=== PATIENT | female | born 1965 | race Two or more races ===

== ENCOUNTER 2020-11-21 08:35 | Inpatient (IN) | payer MEDICAID, OTHER ==
[~2020-11-21] VITALS: Ht 162.6 cm; Wt 87.6 kg
[2020-11-21 09:08] LABS: Basophils # (auto) 0 10 ^3/uL (0-0.2); Basophils % (auto) 0.4 % (0.0-2.0); Eosinophils # (auto) 0 10 ^3/uL (0-0.8); Eosinophils % (auto) 0.4 % (0.0-7.0); Hematocrit 36.7 % (36.0-46.0); Hemoglobin 12.7 g/dL (12.2-16.2); Lymphocytes # (auto) 1.4 10 ^3/uL (0.4-5.4); Lymphocytes % (auto) 13.4 % (10.0-50.0); Mean Corpuscular Hemoglobin 30.4 pg (28.0-32.0); Mean Corpuscular Hgb Conc. 34.6 g/dL (32.0-36.0); Mean Corpuscular Volume 87.7 fL (80.0-100.0); Monocytes # (auto) 0.8 10 ^3/uL (0-1.3); Neutrophils # (auto) 8.2 10 ^3/uL (1.6-8.6); Neutrophils % (auto) 77.8 % (37.0-80.0); Nucleated Red Blood Cells % 0.1 %; Platelet Count (auto) 350 10^3/uL (140-450); Red Blood Cells 4.18 10^6/uL (4.0-5.20); Red Cell Distribution Width 13.6 % (11.8-14.3); White Blood Cell 10.5 10^3/uL (4.4-10.8)
[2020-11-21] MEDS ORDERED: MORPHINE SULFATE 4 MG/ML SYR/VIAL IV ONE (09:15)
[2020-11-21] MEDS ORDERED: ONDANSETRON HCL 4 MG/2 ML VIAL IV ONE (09:15)
[2020-11-21] MEDS ORDERED: SODIUM CHLORIDE 0.9% 1,000 ML IV ONE (09:15)
[2020-11-21 09:38] LABS: Albumin 3.1 g/dL (3.4-5.0); Calcium 8.9 mg/dL (8.5-10.1)
[2020-11-21 09:42] LABS: BUN/Creatinine Ratio 17.8; Bilirubin, Total 0.9 mg/dL (0.2-1.0)
[2020-11-21] MEDS ORDERED: PIPERACILLIN-TAZOB 3.375GM 100 ML IV ONE (11:15)
[2020-11-21] MEDS ORDERED: metroNIDAZOLE 500MG/100ML 100 ML IV ONE (11:15)
[2020-11-21] MEDS ORDERED: ONDANSETRON HCL 4 MG/2 ML VIAL IV PRN (11:45)
[2020-11-21] MEDS: D5W/SOD CHLO 0.9% 1,000 ML IV SCH ×2 (12:48→20:13)
[2020-11-21 14:17] LABS: Urine Bacteria NONE SEEN /hpf (None Seen); Urine Blood 1+ /uL (Negative); Urine Mucus FEW (None Seen); Urine WBC 3 /hpf (0 - 5)
[2020-11-21] MEDS: MORPHINE SULF INJ 2 MG/ML SYRINGE 1ML IV PRN (17:03)
[2020-11-21 19:55] VITALS: BP 105/66
[2020-11-21] MEDS ORDERED: INFLUENZA QUAD 2020-2021 0.5 ML SYRG IM ONE (21:00)
[2020-11-21] MEDS ORDERED: ACETAMINOPHEN 325 MG TAB PO PRN (21:15)
[2020-11-21] MEDS: metroNIDAZOLE 500MG/100ML 100 ML IV SCH (21:27)
[2020-11-21 22:00] VITALS: BP 105/66
[2020-11-22 05:00] VITALS: BP 104/65
[2020-11-22] MEDS: metroNIDAZOLE 500MG/100ML 100 ML IV SCH ×3 (05:13→21:19)
[2020-11-22 06:26] LABS: Basophils # (auto) 0 10 ^3/uL (0-0.2); Basophils % (auto) 0.2 % (0.0-2.0); Eosinophils # (auto) 0.1 10 ^3/uL (0-0.8); Eosinophils % (auto) 1.1 % (0.0-7.0); Hematocrit 33.1 % (36.0-46.0); Hemoglobin 11.7 g/dL (12.2-16.2); Lymphocytes # (auto) 1.2 10 ^3/uL (0.4-5.4); Lymphocytes % (auto) 11.3 % (10.0-50.0); Mean Corpuscular Hemoglobin 30.9 pg (28.0-32.0); Mean Corpuscular Hgb Conc. 35.2 g/dL (32.0-36.0); Mean Corpuscular Volume 87.7 fL (80.0-100.0); Monocytes % (auto) 9.5 % (0.0-12.0); Neutrophils # (auto) 8.2 10 ^3/uL (1.6-8.6); Neutrophils % (auto) 77.9 % (37.0-80.0); Platelet Count (auto) 311 10^3/uL (140-450); Red Blood Cells 3.78 10^6/uL (4.0-5.20); Red Cell Distribution Width 13.8 % (11.8-14.3); White Blood Cell 10.5 10^3/uL (4.4-10.8)
[2020-11-22 06:28] LABS: INR 0.98 (0.9-1.15); Partial Thromboplastin Time 30.8 sec (23.0-31.2)
[2020-11-22 06:33] LABS: Albumin 2.6 g/dL (3.4-5.0); Calcium 8.5 mg/dL (8.5-10.1); Potassium 3.8 mmol/L (3.5-5.1)
[2020-11-22 06:35] LABS: Bilirubin, Total 0.8 mg/dL (0.2-1.0); Total Protein 6.9 g/dL (6.4-8.2)
[2020-11-22] MEDS: D5W/SOD CHLO 0.9% 1,000 ML IV SCH ×2 (06:49→17:43)
[2020-11-22 08:15] VITALS: BP 107/64
[2020-11-22 09:00] VITALS: BP 107/64
[2020-11-22] MEDS: cefTRIAXone 1GM/50ML D5W 50 ML IV SCH (09:00)
[2020-11-22] MEDS ORDERED: ceFAZolin 1GM/50ML 50 ML IV ONE (10:39)
[2020-11-22] MEDS ORDERED: GLYCOPYRROLATE 0.2 MG/ML 1ML VIAL ONE (10:55)
[2020-11-22] MEDS ORDERED: NEOSTIGMINE 1 MG/ML INJ (10mg/10ML VIAL) ONE (10:55)
[2020-11-22] MEDS ORDERED: ePHEDrine SULFATE 50 MG/ML AMP ONE (10:55)
[2020-11-22] MEDS ORDERED: LIDOCAINE 2% (LOCAL ANESTH.) PF 5ml SDV ONE (10:55)
[2020-11-22] MEDS ORDERED: ONDANSETRON HCL 4 MG/2 ML VIAL ONE (10:55)
[2020-11-22] MEDS ORDERED: PROPOFOL 10 MG/ML 20 ML IV ONE (10:56)
[2020-11-22] MEDS ORDERED: DexAMETHasone SOD PHOS 10MG/1ML VIAL INJ ONE (10:56)
[2020-11-22] MEDS ORDERED: BUPIVACAINE 0.25% INJ 50ML VIAL ONE (12:29)
[2020-11-22] MEDS ORDERED: ROCURONIUM 10MG/ML 10ML VIAL IV ONE (12:31)
[2020-11-22] MEDS ORDERED: fentaNYL CITRATE 100 MCG/2 ML VL ONE (12:31)
[2020-11-22] MEDS ORDERED: MIDAZOLAM HCL 1MG/1ML-2 ML VIAL ONE (12:31)
[2020-11-22] MEDS ORDERED: METOCLOPRAMIDE HCL 5MG/ml INJ 2ml VIAL ONE (14:01)
[2020-11-22] MEDS: HYDROmorphone HCL 2 MG/ML VL ONE ×2 (14:05→14:15)
[2020-11-22] MEDS ORDERED: ePHEDrine SULFATE 50 MG/ML AMP IV PRN (14:15)
[2020-11-22] MEDS ORDERED: METOCLOPRAMIDE HCL 5MG/ml INJ 2ml VIAL IV PRN (14:15)
[2020-11-22] MEDS ORDERED: ONDANSETRON HCL 4 MG/2 ML VIAL IV PRN (14:15)
[2020-11-22] MEDS ORDERED: HYDROmorphone HCL 2 MG/ML VL IV PRN ×3 (14:15)
[2020-11-22] MEDS ORDERED: NALOXONE HCL 0.4 MG/ML VIAL IV PRN (14:15)
[2020-11-22 17:00] VITALS: BP 92/58
[2020-11-22] MEDS: MORPHINE SULF INJ 2 MG/ML SYRINGE 1ML IV PRN ×2 (18:19→22:26)
[2020-11-22 22:00] VITALS: BP 97/61
[2020-11-23] MEDS: MORPHINE SULF INJ 2 MG/ML SYRINGE 1ML IV PRN ×4 (02:43→22:53)
[2020-11-23] MEDS: D5W/SOD CHLO 0.9% 1,000 ML IV SCH ×3 (03:01→23:45)
[2020-11-23 05:15] VITALS: BP 96/46
[2020-11-23 06:31] LABS: Basophils # (auto) 0 10 ^3/uL (0-0.2); Basophils % (auto) 0.2 % (0.0-2.0); Eosinophils # (auto) 0 10 ^3/uL (0-0.8); Hematocrit 32.4 % (36.0-46.0); Hemoglobin 11.1 g/dL (12.2-16.2); Lymphocytes % (auto) 9.8 % (10.0-50.0); Mean Corpuscular Hemoglobin 30.1 pg (28.0-32.0); Mean Corpuscular Hgb Conc. 34.2 g/dL (32.0-36.0); Mean Corpuscular Volume 88.1 fL (80.0-100.0); Monocytes # (auto) 0.5 10 ^3/uL (0-1.3); Monocytes % (auto) 5.2 % (0.0-12.0); Neutrophils # (auto) 8.6 10 ^3/uL (1.6-8.6); Neutrophils % (auto) 84.8 % (37.0-80.0); Platelet Count (auto) 384 10^3/uL (140-450); Red Blood Cells 3.67 10^6/uL (4.0-5.20); Red Cell Distribution Width 13.9 % (11.8-14.3); White Blood Cell 10.1 10^3/uL (4.4-10.8)
[2020-11-23] MEDS: metroNIDAZOLE 500MG/100ML 100 ML IV SCH ×3 (06:40→22:45)
[2020-11-23 09:00] VITALS: BP 102/53
[2020-11-23] MEDS: cefTRIAXone 1GM/50ML D5W 50 ML IV SCH (09:43)
[2020-11-23 13:00] VITALS: BP 99/71
[2020-11-23 17:00] VITALS: BP 92/58
[2020-11-24 05:00] VITALS: BP 102/64
[2020-11-24] MEDS: metroNIDAZOLE 500MG/100ML 100 ML IV SCH (06:19)
[2020-11-24 07:30] VITALS: BP 106/64
[2020-11-24] MEDS: MORPHINE SULF INJ 2 MG/ML SYRINGE 1ML IV PRN (08:03)
[2020-11-24] MEDS: D5W/SOD CHLO 0.9% 1,000 ML IV SCH (09:57)
[2020-11-24] MEDS: cefTRIAXone 1GM/50ML D5W 50 ML IV SCH (09:57)
== END 2020-11-24 11:30 | disposition home or self-care (01) | DRG 263 ==
LOC: ER 08:35 → OVERFLOW 08:36 → CENTRAL 19:50
PROVIDERS: ADMIT Nurse Practitioner Acute Care; ATTEND Family Medicine
PROC: 3E013GC Introduction of Other Therapeutic Substance into Subcutaneous Tissue, Percutaneous Approach (ICD-10-PCS; 2020-11-22)
PROC: 0FT44ZZ Resection of Gallbladder, Percutaneous Endoscopic Approach (ICD-10-PCS; principal; 2020-11-22 12:34)
DX: K80.00 Calculus of gallbladder with acute cholecystitis without obstruction (principal); E66.9 Obesity, unspecified; Z87.442 Personal history of urinary calculi; Z20.822 Contact with and (suspected) exposure to COVID-19; Z68.31 Body mass index [BMI] 31.0-31.9, adult
CPT/HCPCS: 36415; 71045; 76705; 80053; 81001; 82247; 84443; 84484; 85025; 85610; 85730; 86850; 86900; 86901; 87426; 93005; 96361; 96365; 96367; 96375; 96376; G0378; J0690; J0696; J1100; J2001; J2250; J2405; J2543; J2704; J3490; J7042

== ENCOUNTER 2021-11-24 10:57 | Inpatient (IN) | payer MEDICAID ==
[~2021-11-24] VITALS: Ht 165.1 cm; Wt 91.5 kg
[2021-11-24] VITALS (30 sets, daily range): BP systolic 89–123; BP diastolic 56–72
[2021-11-24] MEDS ORDERED: KETOROLAC TROMETH 30 MG/ML 1ML VIAL IV ONE (11:15)
[2021-11-24] MEDS ORDERED: SODIUM CHLORIDE 0.9% 1,000 ML IVB ONE (11:15)
[2021-11-24 11:53] LABS: Urine Bacteria FEW /hpf (None Seen); Urine Blood 3+ /uL (Negative); Urine Mucus FEW (None Seen); Urine Specific Gravity 1.023 (1.001-1.035); Urine WBC 540 /hpf (0 - 5)
[2021-11-24] MEDS ORDERED: cefTRIAXone 1GM/50ML D5W 50 ML IV ONE (12:15)
[2021-11-24 12:23] LABS: Albumin 3.8 g/dL (3.4-5.0); Calcium 9.2 mg/dL (8.5-10.1); Potassium 4.6 mmol/L (3.5-5.1)
[2021-11-24 12:32] LABS: BUN/Creatinine Ratio 21.3; Bilirubin, Total 0.8 mg/dL (0.2-1.0); Total Protein 7.4 g/dL (6.4-8.2)
[2021-11-24] MEDS ORDERED: ALUM & MAG HYDROX-SIMETH LIQ(MAALOX) 30 ML PO PRN (12:45)
[2021-11-24] MEDS ORDERED: METOCLOPRAMIDE HCL 5MG/ml INJ 2ml VIAL IV PRN (12:45)
[2021-11-24] MEDS ORDERED: MORPHINE SULFATE INJECTION 2 MG/ML SYRG IV PRN ×3 (12:45)
[2021-11-24] MEDS ORDERED: NITROGLYCERIN 0.4 MG SL TAB SL PRN ×2 (12:45)
[2021-11-24] MEDS ORDERED: TEMAZEPAM 15 MG CAP PO PRN (12:45)
[2021-11-24 12:57] LABS: Basophils # (auto) 0 10 ^3/uL (0-0.2); Basophils % (auto) 0.2 % (0.0-2.0); Eosinophils # (auto) 0 10 ^3/uL (0-0.8); Hematocrit 41.5 % (36.0-46.0); Hemoglobin 14.1 g/dL (12.2-16.2); Lymphocytes # (auto) 0.6 10 ^3/uL (0.4-5.4); Lymphocytes % (auto) 3.4 % (10.0-50.0); Mean Corpuscular Hemoglobin 29.6 pg (28.0-32.0); Mean Corpuscular Hgb Conc. 33.9 g/dL (32.0-36.0); Mean Corpuscular Volume 87.4 fL (80.0-100.0); Monocytes # (auto) 0.7 10 ^3/uL (0-1.3); Monocytes % (auto) 3.8 % (0.0-12.0); Neutrophils # (auto) 16.1 10 ^3/uL (1.6-8.6); Neutrophils % (auto) 92.6 % (37.0-80.0); Red Blood Cells 4.75 10^6/uL (4.0-5.20); Red Cell Distribution Width 14.3 % (11.8-14.3); White Blood Cell 17.4 10^3/uL (4.4-10.8)
[2021-11-24 13:31] LABS: Alcohol, Urine < 3.0 mg/dL (0-10); Amphetamine Screen, Urine NEGATIVE (NEGATIVE); Barbiturate Scree,Urine NEGATIVE (NEGATIVE); Benzodiazephine Screen, Urine NEGATIVE (NEGATIVE); Cannabinoid Screen, Urine NEGATIVE (NEGATIVE); Cocaine Screen, Urine NEGATIVE (NEGATIVE); Opiate Scree,Urine NEGATIVE (NEGATIVE); Phencyclidine Screen, Urine NEGATIVE (NEGATIVE)
[2021-11-24] MEDS: SODIUM CHLORIDE 0.9% 1,000 ML IV SCH (13:54)
[2021-11-24 15:34] LABS: INR 0.99 (0.9-1.15); Partial Thromboplastin Time 23.5 sec (23.6-33.0)
[2021-11-24] MEDS ORDERED: MIDAZOLAM HCL 2MG/2ML 2ml VIAL (1mg/ml) ONE (16:42)
[2021-11-24] MEDS ORDERED: fentaNYL CITRATE 100 MCG/2 ML VL ONE (16:42)
[2021-11-24] MEDS ORDERED: LIDOCAINE 2%HCL (LOCAL ANESTH.) INJ 20ML MDV ONE (16:44)
[2021-11-25] VITALS: BP 93/57
[2021-11-25 05:00] VITALS: BP 103/48
[2021-11-25] MEDS: SODIUM CHLORIDE 0.9% 1,000 ML IV SCH ×2 (05:48→22:05)
[2021-11-25] MEDS: ACETAMINOPHEN 325 MG TAB PO PRN ×2 (05:49→16:38)
[2021-11-25 08:35] LABS: Albumin 2.8 g/dL (3.4-5.0); BUN/Creatinine Ratio 24.8; Calcium 8.4 mg/dL (8.5-10.1); Magnesium 2.3 mg/dL (1.6-2.6); Potassium 3.6 mmol/L (3.5-5.1)
[2021-11-25 08:36] LABS: Basophils # (auto) 0 10 ^3/uL (0-0.2); Basophils % (auto) 0.1 % (0.0-2.0); Eosinophils # (auto) 0 10 ^3/uL (0-0.8); Hematocrit 34.8 % (36.0-46.0); Hemoglobin 12.2 g/dL (12.2-16.2); Lymphocytes # (auto) 0.9 10 ^3/uL (0.4-5.4); Mean Corpuscular Hemoglobin 30.3 pg (28.0-32.0); Mean Corpuscular Hgb Conc. 35.1 g/dL (32.0-36.0); Mean Corpuscular Volume 86.5 fL (80.0-100.0); Monocytes # (auto) 0.7 10 ^3/uL (0-1.3); Neutrophils # (auto) 13.1 10 ^3/uL (1.6-8.6); Neutrophils % (auto) 88.9 % (37.0-80.0); Red Blood Cells 4.02 10^6/uL (4.0-5.20); Red Cell Distribution Width 14.6 % (11.8-14.3); White Blood Cell 14.7 10^3/uL (4.4-10.8)
[2021-11-25 08:37] LABS: Bilirubin, Total 1.1 mg/dL (0.2-1.0); Total Protein 6.1 g/dL (6.4-8.2)
[2021-11-25 08:45] LABS: INR 1.16 (0.9-1.15); Partial Thromboplastin Time 33.3 sec (23.6-33.0)
[2021-11-25 09:24] VITALS: BP 98/60
[2021-11-25] MEDS: HYDROcodone-ACET 5/325MG TAB PO PRN ×2 (10:06→21:58)
[2021-11-25] MEDS: cefTRIAXone 1GM/50ML D5W 50 ML IV SCH (10:06)
[2021-11-25 13:00] VITALS: BP 93/54
[2021-11-25 17:27] VITALS: BP 97/48
[2021-11-25 22:11] VITALS: BP 90/53
[2021-11-26 05:00] VITALS: BP 94/50
[2021-11-26 09:00] VITALS: BP 98/55
[2021-11-26] MEDS: cefTRIAXone 1GM/50ML D5W 50 ML IV SCH (10:02)
[2021-11-26 13:00] VITALS: BP 106/46
[2021-11-26] MEDS: SODIUM CHLORIDE 0.9% 1,000 ML IV SCH (14:45)
[2021-11-26] MEDS: ACETAMINOPHEN 325 MG TAB PO PRN (16:00)
[2021-11-26 17:00] VITALS: BP 117/69
[2021-11-26 21:41] VITALS: BP 112/64
[2021-11-26] MEDS: PIPERACILLIN-TAZOB 3.375GM 100 ML IV SCH (23:44)
[2021-11-27 05:30] VITALS: BP 121/75
[2021-11-27] MEDS: PIPERACILLIN-TAZOB 3.375GM 100 ML IV SCH (06:37)
[2021-11-27 09:00] VITALS: BP_SYST 115; BP_SYST 134; BP_DIAS 74; BP_DIAS 95
[2021-11-27 10:02] LABS: Cholesterol 232 mg/dL (< 200); HDL Cholesterol 39 mg/dL (40-59); Triglycerides 219 mg/dL (< 150)
[2021-11-27 13:00] VITALS: BP 111/74
[2021-11-27] MEDS ORDERED: CEFTRIAXONE SODIUM 2 GM in D5W 5% 50 ML IV ONE (13:15)
[2021-11-27] MEDS: SODIUM CHLORIDE 0.9% 1,000 ML IV SCH (13:53)
[2021-11-27 17:00] VITALS: BP 107/72
[2021-11-27 21:35] VITALS: BP_SYST 72
[2021-11-27 21:59] LABS: Basophils # (auto) 0 10 ^3/uL (0-0.2); Basophils % (auto) 0.5 % (0.0-2.0); Eosinophils # (auto) 0.1 10 ^3/uL (0-0.8); Eosinophils % (auto) 1.8 % (0.0-7.0); Hemoglobin 11.7 g/dL (12.2-16.2); Lymphocytes # (auto) 1.1 10 ^3/uL (0.4-5.4); Lymphocytes % (auto) 25.7 % (10.0-50.0); Mean Corpuscular Hemoglobin 29.5 pg (28.0-32.0); Mean Corpuscular Hgb Conc. 34.4 g/dL (32.0-36.0); Monocytes # (auto) 0.4 10 ^3/uL (0-1.3); Monocytes % (auto) 10.3 % (0.0-12.0); Neutrophils # (auto) 2.6 10 ^3/uL (1.6-8.6); Neutrophils % (auto) 61.7 % (37.0-80.0); Nucleated Red Blood Cells % 0.2 %; Red Blood Cells 3.96 10^6/uL (4.0-5.20); Red Cell Distribution Width 14.1 % (11.8-14.3); White Blood Cell 4.2 10^3/uL (4.4-10.8)
[2021-11-27 22:15] LABS: BUN/Creatinine Ratio 18.4; Calcium 8.9 mg/dL (8.5-10.1); Potassium 3.5 mmol/L (3.5-5.1)
[2021-11-28] MEDS: SODIUM CHLORIDE 0.9% 1,000 ML IV SCH (02:00)
[2021-11-28 08:00] VITALS: BP 114/72
[2021-11-28 09:00] VITALS: BP 114/72
[2021-11-28] MEDS ORDERED: CEFTRIAXONE SODIUM 2 GM in D5W 5% 50 ML IV SCH (10:00)
[2021-11-28 13:00] VITALS: BP 123/75
[2021-11-28] MEDS ORDERED: CEPH-509 PO (14:49)
[2021-11-28 15:45] VITALS: BP 123/75
[2021-12-07 15:13] LABS: LDL Cholesterol 145 mg/dL (< 100)
== END 2021-11-28 18:26 | disposition home health service (06) | DRG 720 ==
LOC: ER 10:57 → OVERFLOW 12:38 → WEST WING 15:37
PROVIDERS: ADMIT Hospitalist; ATTEND Internal Medicine
PROC: 0T9130Z Drainage of Left Kidney with Drainage Device, Percutaneous Approach (ICD-10-PCS; principal; 2021-11-24)
DX: A41.9 Sepsis, unspecified organism (principal); K81.0 Acute cholecystitis; N13.6 Pyonephrosis; B96.20 Unspecified Escherichia coli [E. coli] as the cause of diseases classified elsewhere; E66.01 Morbid (severe) obesity due to excess calories; Z20.822 Contact with and (suspected) exposure to COVID-19; E78.5 Hyperlipidemia, unspecified; N20.2 Calculus of kidney with calculus of ureter; Z83.3 Family history of diabetes mellitus; Z68.33 Body mass index [BMI] 33.0-33.9, adult; Z82.49 Family history of ischemic heart disease and other diseases of the circulatory system; Z90.49 Acquired absence of other specified parts of digestive tract
CPT/HCPCS: 10005; 36415; 74150; 74176; 77012; 80048; 80053; 80061; 80307; 81001; 83036; 83690; 83735; 84100; 84484; 85025; 85610; 85730; 87040; 87086; 87088; 87186; 87426; 93005; 96361; 96365; 96375; C1729; G0378; J0696; J1885; J2250; J2543; J7060

== ENCOUNTER 2022-01-11 16:27 | Inpatient (IN) | payer MEDICAID ==
[~2022-01-11] VITALS: Ht 167.6 cm; Wt 91.4 kg
[~2022-01-11 16:27] MED LIST: CEPH-509 PO
[2022-01-11 17:28] LABS: Basophils # (auto) 0 10 ^3/uL (0-0.2); Basophils % (auto) 0.4 % (0.0-2.0); Eosinophils # (auto) 0.2 10 ^3/uL (0-0.8); Eosinophils % (auto) 1.8 % (0.0-7.0); Hemoglobin 13.9 g/dL (12.2-16.2); Lymphocytes # (auto) 2.8 10 ^3/uL (0.4-5.4); Lymphocytes % (auto) 32.8 % (10.0-50.0); Mean Corpuscular Hemoglobin 29.9 pg (28.0-32.0); Mean Corpuscular Hgb Conc. 34.8 g/dL (32.0-36.0); Mean Corpuscular Volume 85.7 fL (80.0-100.0); Monocytes # (auto) 0.5 10 ^3/uL (0-1.3); Monocytes % (auto) 6.2 % (0.0-12.0); Neutrophils % (auto) 58.8 % (37.0-80.0); Nucleated Red Blood Cells % 0.1 %; Red Blood Cells 4.67 10^6/uL (4.0-5.20); Red Cell Distribution Width 14.4 % (11.8-14.3); White Blood Cell 8.6 10^3/uL (4.4-10.8)
[2022-01-11 17:30] LABS: Albumin 3.8 g/dL (3.4-5.0); Calcium 9.2 mg/dL (8.5-10.1); Potassium 3.9 mmol/L (3.5-5.1)
[2022-01-11 17:32] LABS: BUN/Creatinine Ratio 12.5; Bilirubin, Total 0.5 mg/dL (0.2-1.0); Total Protein 7.9 g/dL (6.4-8.2)
[2022-01-11 20:05] LABS: Urine Bacteria FEW /hpf (None Seen); Urine Blood 1+ /uL (Negative); Urine Specific Gravity 1.002 (1.001-1.035); Urine WBC 2 /hpf (0 - 5)
[2022-01-11] MEDS ORDERED: SODIUM CHLORIDE 0.9% 1,000 ML IV ONE (20:30)
[2022-01-11] MEDS ORDERED: cefTRIAXone 1GM/50ML D5W 50 ML IV ONE (20:30)
[2022-01-11] MEDS ORDERED: ONDANSETRON HCL 4 MG/2 ML VIAL IV PRN (21:30)
[2022-01-11] MEDS ORDERED: MORPHINE SULFATE INJECTION 2 MG/ML SYRG IV PRN (21:30)
[2022-01-11] MEDS ORDERED: HYDROcodone-ACET 5/325MG TAB PO PRN (21:30)
[2022-01-11] MEDS ORDERED: MORPHINE SULFATE 4 MG/ML SYR/VIAL IV PRN (21:30)
[2022-01-11] MEDS ORDERED: TEMAZEPAM 15 MG CAP PO PRN (21:30)
[2022-01-11] MEDS ORDERED: NITROGLYCERIN 0.4 MG SL TAB SL PRN (21:30)
[2022-01-11] MEDS ORDERED: ACETAMINOPHEN 325 MG TAB PO PRN (21:30)
[2022-01-11] MEDS ORDERED: DEXTROSE (50%) 50ML SYRG IV PRN (21:30)
[2022-01-11] MEDS: InsuLIN REG 1unit/0.01ml Soln (100units/ml) SC SCH (21:46)
[2022-01-11] MEDS: ACCU-CHEK COMFORT CURVE STRIP VI SCH (21:47)
[2022-01-11] MEDS: ATORVASTATIN 20 MG TAB PO SCH (22:04)
[2022-01-11] MEDS: PIPERACILLIN-TAZOB 3.375GM 100 ML IV SCH (22:04)
[2022-01-11 23:30] VITALS: BP 110/71
[2022-01-12] MEDS ORDERED: METF-869 PO (04:45)
[2022-01-12] MEDS ORDERED: ERGO1CAP12 PO (04:45)
[2022-01-12] MEDS ORDERED: ATOR20TA50 PO (04:45)
[2022-01-12 05:00] VITALS: BP 109/58
[2022-01-12 05:59] LABS: Basophils # (auto) 0 10 ^3/uL (0-0.2); Basophils % (auto) 0.4 % (0.0-2.0); Eosinophils # (auto) 0.1 10 ^3/uL (0-0.8); Eosinophils % (auto) 2.8 % (0.0-7.0); Hematocrit 35.9 % (36.0-46.0); Hemoglobin 12.6 g/dL (12.2-16.2); Lymphocytes % (auto) 38.5 % (10.0-50.0); Mean Corpuscular Hgb Conc. 35.2 g/dL (32.0-36.0); Mean Corpuscular Volume 85.4 fL (80.0-100.0); Monocytes # (auto) 0.4 10 ^3/uL (0-1.3); Monocytes % (auto) 6.8 % (0.0-12.0); Neutrophils # (auto) 2.7 10 ^3/uL (1.6-8.6); Neutrophils % (auto) 51.5 % (37.0-80.0); Nucleated Red Blood Cells % 0.1 %; Red Blood Cells 4.21 10^6/uL (4.0-5.20); Red Cell Distribution Width 14.4 % (11.8-14.3); White Blood Cell 5.2 10^3/uL (4.4-10.8)
[2022-01-12] MEDS: ACCU-CHEK COMFORT CURVE STRIP VI SCH ×4 (06:13→22:22)
[2022-01-12] MEDS: PIPERACILLIN-TAZOB 3.375GM 100 ML IV SCH ×3 (06:13→22:23)
[2022-01-12] MEDS: InsuLIN REG 1unit/0.01ml Soln (100units/ml) SC SCH ×4 (06:14→22:00)
[2022-01-12 06:25] LABS: Albumin 3.4 g/dL (3.4-5.0); BUN/Creatinine Ratio 11.1; Bilirubin, Total 0.8 mg/dL (0.2-1.0); Potassium 4.4 mmol/L (3.5-5.1)
[2022-01-12 09:00] VITALS: BP 110/73
[2022-01-12 10:04] LABS: INR 1.05 (0.9-1.15); Partial Thromboplastin Time 29.2 sec (23.6-33.0)
[2022-01-12] MEDS ORDERED: LIDOCAINE 2%HCL (LOCAL ANESTH.) INJ 10ml MDV ONE (11:31)
[2022-01-12] MEDS ORDERED: IODIXANOL 320MG/ML 100ML BTL IV ONE (11:31)
[2022-01-12] MEDS ORDERED: fentaNYL CITRATE 100 MCG/2 ML VL ONE (11:40)
[2022-01-12] MEDS ORDERED: MIDAZOLAM HCL 2MG/2ML 2ml VIAL (1mg/ml) ONE (11:40)
[2022-01-12 16:39] VITALS: BP 104/65
[2022-01-12 22:00] VITALS: BP 100/61
[2022-01-12] MEDS: ATORVASTATIN 20 MG TAB PO SCH (22:23)
[2022-01-13 05:00] VITALS: BP 101/64
[2022-01-13] MEDS: PIPERACILLIN-TAZOB 3.375GM 100 ML IV SCH ×3 (06:10→17:00)
[2022-01-13] MEDS: InsuLIN REG 1unit/0.01ml Soln (100units/ml) SC SCH ×4 (06:11→21:10)
[2022-01-13] MEDS: ACCU-CHEK COMFORT CURVE STRIP VI SCH ×4 (06:11→21:10)
[2022-01-13 09:00] VITALS: BP 100/64
[2022-01-13 12:55] VITALS: BP 102/69
[2022-01-13 17:00] VITALS: BP 103/67
[2022-01-13] MEDS: ATORVASTATIN 20 MG TAB PO SCH (21:10)
[2022-01-13 22:00] VITALS: BP 103/66
[2022-01-14 05:00] VITALS: BP 100/56
[2022-01-14 05:20] LABS: Basophils # (auto) 0 10 ^3/uL (0-0.2); Basophils % (auto) 0.4 % (0.0-2.0); Eosinophils # (auto) 0.3 10 ^3/uL (0-0.8); Eosinophils % (auto) 4.3 % (0.0-7.0); Hematocrit 37.4 % (36.0-46.0); Lymphocytes # (auto) 2.4 10 ^3/uL (0.4-5.4); Lymphocytes % (auto) 38.2 % (10.0-50.0); Mean Corpuscular Hemoglobin 29.7 pg (28.0-32.0); Mean Corpuscular Hgb Conc. 34.8 g/dL (32.0-36.0); Mean Corpuscular Volume 85.4 fL (80.0-100.0); Monocytes # (auto) 0.4 10 ^3/uL (0-1.3); Monocytes % (auto) 6.4 % (0.0-12.0); Neutrophils # (auto) 3.2 10 ^3/uL (1.6-8.6); Neutrophils % (auto) 50.7 % (37.0-80.0); Nucleated Red Blood Cells % 0.1 %; Red Blood Cells 4.38 10^6/uL (4.0-5.20); Red Cell Distribution Width 14.3 % (11.8-14.3); White Blood Cell 6.3 10^3/uL (4.4-10.8)
[2022-01-14 05:35] LABS: Potassium 3.5 mmol/L (3.5-5.1)
[2022-01-14 05:41] LABS: Albumin 3.3 g/dL (3.4-5.0); BUN/Creatinine Ratio 19.5; Calcium 8.9 mg/dL (8.5-10.1)
[2022-01-14 05:44] LABS: Bilirubin, Total 0.6 mg/dL (0.2-1.0); Total Protein 7.1 g/dL (6.4-8.2)
[2022-01-14] MEDS: InsuLIN REG 1unit/0.01ml Soln (100units/ml) SC SCH ×2 (06:26→11:30)
[2022-01-14] MEDS: ACCU-CHEK COMFORT CURVE STRIP VI SCH ×2 (06:26→11:30)
[2022-01-14] MEDS: PIPERACILLIN-TAZOB 3.375GM 100 ML IV SCH ×2 (06:26→14:00)
[2022-01-14 08:51] VITALS: BP 103/62
[2022-01-14 13:00] VITALS: BP 112/67
[2022-01-14] MEDS ORDERED: CEPH-509 PO (13:20)
[2022-01-14 15:39] VITALS: BP 112/67
== END 2022-01-14 16:35 | disposition home or self-care (01) | DRG 466 ==
LOC: ER 16:27 → TELE 21:17 → TELE-EAST 23:01
PROVIDERS: ADMIT Nurse Practitioner; ATTEND Nurse Practitioner
PROC: 0T25X0Z Change Drainage Device in Kidney, External Approach (ICD-10-PCS; principal; 2022-01-11)
DX: T83.022A Displacement of nephrostomy catheter, initial encounter (principal); E11.9 Type 2 diabetes mellitus without complications; E66.9 Obesity, unspecified; I10 Essential (primary) hypertension; N39.0 Urinary tract infection, site not specified; Y73.2 Prosthetic and other implants, materials and accessory gastroenterology and urology devices associated with adverse incidents; Z20.822 Contact with and (suspected) exposure to COVID-19; E78.5 Hyperlipidemia, unspecified; Z82.49 Family history of ischemic heart disease and other diseases of the circulatory system; Z83.3 Family history of diabetes mellitus; Y92.89 Other specified places as the place of occurrence of the external cause; Z68.32 Body mass index [BMI] 32.0-32.9, adult; Z79.84 Long term (current) use of oral hypoglycemic drugs
CPT/HCPCS: 36415; 50435; 74176; 80053; 81001; 82962; 83605; 85025; 85610; 85730; 96365; 99152; C1729; G0378; J0696; J1815; J2001; J2250; J2543; Q9967

== ENCOUNTER 2022-02-18 23:33 | Inpatient (IN) | payer MEDICAID ==
[~2022-02-18] VITALS: Ht 165.1 cm; Wt 94.2 kg
[~2022-02-18 23:33] MED LIST changes: +ATOR20TA50 PO; +ERGO1CAP12 PO; +METF-869 PO
[2022-02-19] VITALS (7 sets, daily range): BP systolic 107–130; BP diastolic 66–86
[2022-02-19 02:02] LABS: Urine Bacteria NONE SEEN /hpf (None Seen); Urine Blood 3+ /uL (Negative); Urine Specific Gravity 1.018 (1.001-1.035); Urine WBC 23 /hpf (0 - 5)
[2022-02-19] MEDS ORDERED: KETOROLAC TROMETH 30 MG/ML 1ML VIAL IV ONE (03:45)
[2022-02-19] MEDS ORDERED: cefTRIAXone 1GM/50ML D5W 50 ML IV ONE (04:00)
[2022-02-19 04:16] LABS: Basophils # (auto) 0.1 10 ^3/uL (0-0.2); Basophils % (auto) 0.4 % (0.0-2.0); Eosinophils # (auto) 0 10 ^3/uL (0-0.8); Eosinophils % (auto) 0.2 % (0.0-7.0); Hematocrit 37.9 % (36.0-46.0); Hemoglobin 13.2 g/dL (12.2-16.2); Lymphocytes # (auto) 1.8 10 ^3/uL (0.4-5.4); Lymphocytes % (auto) 14.1 % (10.0-50.0); Mean Corpuscular Hemoglobin 29.8 pg (28.0-32.0); Mean Corpuscular Hgb Conc. 34.9 g/dL (32.0-36.0); Mean Corpuscular Volume 85.4 fL (80.0-100.0); Monocytes # (auto) 0.4 10 ^3/uL (0-1.3); Monocytes % (auto) 3.5 % (0.0-12.0); Neutrophils # (auto) 10.4 10 ^3/uL (1.6-8.6); Neutrophils % (auto) 81.8 % (37.0-80.0); Red Blood Cells 4.44 10^6/uL (4.0-5.20); Red Cell Distribution Width 14.4 % (11.8-14.3); White Blood Cell 12.7 10^3/uL (4.4-10.8)
[2022-02-19 04:35] LABS: BUN/Creatinine Ratio 23.9; Calcium 9.7 mg/dL (8.5-10.1); Potassium 4.5 mmol/L (3.5-5.1)
[2022-02-19 04:38] LABS: Bilirubin, Total 0.7 mg/dL (0.2-1.0); Total Protein 7.5 g/dL (6.4-8.2)
[2022-02-19] MEDS ORDERED: NITROGLYCERIN 0.4 MG SL TAB SL PRN (05:30)
[2022-02-19] MEDS ORDERED: DOCUSATE SOD 100 MG CAP PO PRN (05:30)
[2022-02-19] MEDS ORDERED: MORPHINE SULFATE INJ 2 MG/ml SYRG IV PRN (05:30)
[2022-02-19] MEDS ORDERED: ACETAMINOPHEN 325 MG TAB PO PRN (05:30)
[2022-02-19] MEDS: SODIUM CHLORIDE 0.9% 1,000 ML IV SCH (06:19)
[2022-02-19] MEDS: levoFLOXacin 500MG 100 ML IV SCH (07:04)
[2022-02-19] MEDS ORDERED: MANNITOL FTV 25% 12.5 GM/50 ML 50 ML IV ONE (08:30)
[2022-02-19 09:17] LABS: Partial Thromboplastin Time 27.9 sec (23.6-33.0)
[2022-02-19] MEDS: MULTIPLE VITAMIN TAB PO SCH (10:00)
[2022-02-19] MEDS: ZINC SULFATE 220mg CAP or TAB PO SCH (10:00)
[2022-02-19] MEDS: ENOXAPARIN SOD 40 MG/0.4 ML SYRINGE SC SCH (10:00)
[2022-02-19] MEDS: ASCORBIC ACID 500 MG TAB PO SCH ×2 (10:00→21:38)
[2022-02-19] MEDS ORDERED: IODIXANOL 320MG/ML 100ML BTL IV ONE (11:06)
[2022-02-19] MEDS ORDERED: LIDOCAINE 2%HCL (LOCAL ANESTH.) INJ 10ml MDV ONE ×3 (11:06→12:29)
[2022-02-19] MEDS ORDERED: MIDAZOLAM HCL 2MG/2ML 2ml VIAL (1mg/ml) ONE ×2 (11:57→13:07)
[2022-02-19] MEDS ORDERED: fentaNYL CITRATE 100 MCG/2 ML VL ONE ×2 (11:57→13:07)
[2022-02-19] MEDS: HYDROcodone-ACET 5/325MG TAB PO PRN ×2 (14:58→21:46)
[2022-02-20 05:00] VITALS: BP 104/67
[2022-02-20] MEDS: levoFLOXacin 500MG 100 ML IV SCH (05:42)
[2022-02-20] MEDS: SODIUM CHLORIDE 0.9% 1,000 ML IV SCH ×2 (05:42→14:50)
[2022-02-20 05:49] LABS: Basophils # (auto) 0 10 ^3/uL (0-0.2); Basophils % (auto) 0.2 % (0.0-2.0); Eosinophils # (auto) 0.1 10 ^3/uL (0-0.8); Eosinophils % (auto) 1.7 % (0.0-7.0); Hemoglobin 12.3 g/dL (12.2-16.2); Lymphocytes # (auto) 1.9 10 ^3/uL (0.4-5.4); Lymphocytes % (auto) 30.9 % (10.0-50.0); Mean Corpuscular Hemoglobin 30.8 pg (28.0-32.0); Mean Corpuscular Hgb Conc. 36.3 g/dL (32.0-36.0); Mean Corpuscular Volume 84.8 fL (80.0-100.0); Monocytes # (auto) 0.3 10 ^3/uL (0-1.3); Monocytes % (auto) 5.5 % (0.0-12.0); Neutrophils # (auto) 3.8 10 ^3/uL (1.6-8.6); Neutrophils % (auto) 61.7 % (37.0-80.0); Nucleated Red Blood Cells % 0.2 %; Red Blood Cells 4.01 10^6/uL (4.0-5.20); Red Cell Distribution Width 14.5 % (11.8-14.3); White Blood Cell 6.1 10^3/uL (4.4-10.8)
[2022-02-20 06:02] LABS: Albumin 3.1 g/dL (3.4-5.0); Calcium 8.8 mg/dL (8.5-10.1); Potassium 3.9 mmol/L (3.5-5.1)
[2022-02-20 06:05] LABS: Bilirubin, Total 0.8 mg/dL (0.2-1.0); Total Protein 6.2 g/dL (6.4-8.2)
[2022-02-20 09:00] VITALS: BP 121/64
[2022-02-20] MEDS: ZINC SULFATE 220mg CAP or TAB PO SCH (10:15)
[2022-02-20] MEDS: ASCORBIC ACID 500 MG TAB PO SCH ×2 (10:16→20:51)
[2022-02-20] MEDS: MULTIPLE VITAMIN TAB PO SCH (10:16)
[2022-02-20] MEDS: ENOXAPARIN SOD 40 MG/0.4 ML SYRINGE SC SCH (10:16)
[2022-02-20 13:01] VITALS: BP 118/76
[2022-02-20 17:00] VITALS: BP 119/76
[2022-02-20] MEDS: HYDROcodone-ACET 5/325MG TAB PO PRN (17:45)
[2022-02-20 22:00] VITALS: BP 115/76
[2022-02-21 05:00] VITALS: BP 107/68
[2022-02-21] MEDS: levoFLOXacin 500MG 100 ML IV SCH (05:39)
[2022-02-21] MEDS: SODIUM CHLORIDE 0.9% 1,000 ML IV SCH (07:30)
[2022-02-21] MEDS: ENOXAPARIN SOD 40 MG/0.4 ML SYRINGE SC SCH (08:42)
[2022-02-21] MEDS: ASCORBIC ACID 500 MG TAB PO SCH ×2 (08:42→22:00)
[2022-02-21] MEDS: ZINC SULFATE 220mg CAP or TAB PO SCH (08:42)
[2022-02-21] MEDS: MULTIPLE VITAMIN TAB PO SCH (08:42)
[2022-02-21 09:16] VITALS: BP 118/74
[2022-02-21] MEDS: ONDANSETRON HCL 4 MG/2 ML VIAL IV PRN (12:07)
[2022-02-21 13:00] VITALS: BP 118/69
[2022-02-21 17:30] VITALS: BP 108/67
[2022-02-21 22:09] VITALS: BP 110/76
[2022-02-22 05:00] VITALS: BP 121/71
[2022-02-22 05:21] LABS: Basophils # (auto) 0 10 ^3/uL (0-0.2); Basophils % (auto) 0.5 % (0.0-2.0); Eosinophils # (auto) 0.2 10 ^3/uL (0-0.8); Eosinophils % (auto) 3.5 % (0.0-7.0); Hematocrit 36.4 % (36.0-46.0); Hemoglobin 12.4 g/dL (12.2-16.2); Lymphocytes # (auto) 1.6 10 ^3/uL (0.4-5.4); Lymphocytes % (auto) 29.2 % (10.0-50.0); Mean Corpuscular Hemoglobin 29.2 pg (28.0-32.0); Mean Corpuscular Volume 85.8 fL (80.0-100.0); Monocytes # (auto) 0.4 10 ^3/uL (0-1.3); Monocytes % (auto) 6.6 % (0.0-12.0); Neutrophils # (auto) 3.4 10 ^3/uL (1.6-8.6); Neutrophils % (auto) 60.2 % (37.0-80.0); Nucleated Red Blood Cells % 0.2 %; Red Blood Cells 4.24 10^6/uL (4.0-5.20); Red Cell Distribution Width 14.6 % (11.8-14.3); White Blood Cell 5.6 10^3/uL (4.4-10.8)
[2022-02-22 05:39] LABS: Albumin 2.9 g/dL (3.4-5.0); Calcium 8.7 mg/dL (8.5-10.1); Potassium 3.6 mmol/L (3.5-5.1)
[2022-02-22 05:41] LABS: BUN/Creatinine Ratio 15.8
[2022-02-22 05:43] LABS: Bilirubin, Total 0.5 mg/dL (0.2-1.0); Magnesium 1.8 mg/dL (1.6-2.6); Total Protein 6.5 g/dL (6.4-8.2)
[2022-02-22] MEDS: levoFLOXacin 500MG 100 ML IV SCH (06:20)
[2022-02-22] MEDS: SODIUM CHLORIDE 0.9% 1,000 ML IV SCH ×2 (06:25→17:00)
[2022-02-22] MEDS: MULTIPLE VITAMIN TAB PO SCH (07:59)
[2022-02-22] MEDS: ZINC SULFATE 220mg CAP or TAB PO SCH (07:59)
[2022-02-22] MEDS: ASCORBIC ACID 500 MG TAB PO SCH ×2 (08:00→20:53)
[2022-02-22] MEDS: ENOXAPARIN SOD 40 MG/0.4 ML SYRINGE SC SCH (08:00)
[2022-02-22 08:30] VITALS: BP 119/75
[2022-02-22 09:00] VITALS: BP 119/75
[2022-02-22] MEDS ORDERED: SUCCINYLCHOLINE CHLORIDE 20 MG/ML 10ML VIAL IV ONE (12:21)
[2022-02-22 13:00] VITALS: BP 122/80
[2022-02-22] MEDS ORDERED: ceFAZolin 1GM/50ML 100 ML IV ONE (13:27)
[2022-02-22] MEDS ORDERED: ROCURONIUM 10MG/ML 10ML VIAL IV ONE (14:00)
[2022-02-22] MEDS ORDERED: MIDAZOLAM HCL 2MG/2ML 2ml VIAL (1mg/ml) ONE (14:00)
[2022-02-22] MEDS ORDERED: fentaNYL CITRATE 100 MCG/2 ML VL ONE (14:00)
[2022-02-22] MEDS ORDERED: LIDOCAINE 2% (LOCAL ANESTH.) PF 5ml SDV ONE (14:04)
[2022-02-22] MEDS ORDERED: PROPOFOL 10 MG/ML 20 ML IV ONE (14:04)
[2022-02-22] MEDS ORDERED: ONDANSETRON HCL 4 MG/2 ML VIAL ONE (14:04)
[2022-02-22] MEDS ORDERED: ONDANSETRON HCL 4 MG/2 ML VIAL IV PRN (15:00)
[2022-02-22] MEDS ORDERED: HYDROmorphone HCL 2 MG/ML VL/or syr IV PRN ×2 (15:00)
[2022-02-22] MEDS ORDERED: ePHEDrine SULFATE 50 MG/ML AMP ONE (15:20)
[2022-02-22] MEDS ORDERED: GLYCOPYRROLATE 0.2 MG/ML 1ML VIAL ONE ×3 (15:28→15:40)
[2022-02-22] MEDS ORDERED: NEOSTIGMINE 1 MG/ML INJ (10mg/10ML VIAL) ONE (15:40)
[2022-02-22 17:00] VITALS: BP 124/74
[2022-02-22 22:00] VITALS: BP 123/83
[2022-02-23 05:00] VITALS: BP 108/56
[2022-02-23] MEDS: levoFLOXacin 500MG 100 ML IV SCH (05:25)
[2022-02-23] MEDS: MORPHINE SULFATE INJ 2 MG/ml SYRG IV PRN ×2 (05:47→10:47)
[2022-02-23] MEDS: HYDROcodone-ACET 5/325MG TAB PO PRN ×2 (06:27→10:29)
[2022-02-23 09:00] VITALS: BP 122/73
[2022-02-23] MEDS: ENOXAPARIN SOD 40 MG/0.4 ML SYRINGE SC SCH (10:00)
[2022-02-23] MEDS: ZINC SULFATE 220mg CAP or TAB PO SCH (10:29)
[2022-02-23] MEDS: MULTIPLE VITAMIN TAB PO SCH (10:29)
[2022-02-23] MEDS: ASCORBIC ACID 500 MG TAB PO SCH (10:29)
[2022-02-23] MEDS: ONDANSETRON HCL 4 MG/2 ML VIAL IV PRN (10:45)
[2022-02-23 13:00] VITALS: BP 105/69
[2022-02-23] MEDS ORDERED: DOXY-346 PO (15:17)
[2022-02-23 17:04] VITALS: BP_SYST 105; BP_SYST 118; BP_DIAS 69; BP_DIAS 74
== END 2022-02-23 18:42 | disposition home or self-care (01) | DRG 463 ==
LOC: ER 23:33 → TELE 02-19 05:24 → TELE-WESTW 02-19 15:07 → WEST WING 02-21 17:33
PROVIDERS: ADMIT Internal Medicine; ATTEND Internal Medicine
PROC: 0T9130Z Drainage of Left Kidney with Drainage Device, Percutaneous Approach (ICD-10-PCS; principal; 2022-02-19)
PROC: 0T9030Z Drainage of Right Kidney with Drainage Device, Percutaneous Approach (ICD-10-PCS; 2022-02-19)
PROC: BT13YZZ Fluoroscopy of Bilateral Kidneys using Other Contrast (ICD-10-PCS; 2022-02-19)
PROC: BT43ZZZ Ultrasonography of Bilateral Kidneys (ICD-10-PCS; 2022-02-19)
PROC: 0TP98DZ Removal of Intraluminal Device from Ureter, Via Natural or Artificial Opening Endoscopic (ICD-10-PCS; 2022-02-22)
DX: N13.6 Pyonephrosis (principal); N17.9 Acute kidney failure, unspecified; D72.829 Elevated white blood cell count, unspecified; E78.5 Hyperlipidemia, unspecified; Z82.49 Family history of ischemic heart disease and other diseases of the circulatory system; Z83.3 Family history of diabetes mellitus; Z87.442 Personal history of urinary calculi; Z90.49 Acquired absence of other specified parts of digestive tract
CPT/HCPCS: 36415; 50432; 71045; 74018; 74176; 74425; 76000; 76775; 76942; 80053; 81001; 82360; 83735; 85025; 85610; 85730; 93005; 96361; 96365; 96367; 96368; 96375; 99152; 99153; G0378; J0330; J0690; J0696; J1885; J1956; J2001; J2250; J2405; J2704; Q9967